=== PATIENT | male | born 1975 ===

== ENCOUNTER 2025-04-10 10:18 | Emergency (ER) | payer MEDICAID ==
[~2025-04-10] VITALS: Ht 185.4 cm; Wt 77.0 kg
[2025-04-10 10:33] VITALS: TEMP 97.8
--- NOTE | 2025-04-10 11:07 | RADIOLOGY REPORT ---
AP portable chest CLINICAL INDICATION: right rib pain FINDINGS: Heart size is normal. No infiltrates or effusions. No bony thoracic abnormalities. IMPRESSION: 1. Normal chest x-ray.
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
[2025-04-10] MEDS ORDERED: HYDR-3972 PO (11:36)
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
[2025-04-10] MEDS: HYDROcodone/acetaminophen 10/325mg tab PO ONE (11:53)
[2025-04-10 11:58] VITALS: BP 121/67; PULSE 60; RESP 14; O2SAT 98
== END 2025-04-10 12:00 | disposition home or self-care (01) ==
LOC: ER 10:20
DX: S22.31XA Fracture of one rib, right side, initial encounter for closed fracture (principal); X58.XXXA Exposure to other specified factors, initial encounter; Y93.01 Activity, walking, marching and hiking; Y93.89 Activity, other specified; Y99.8 Other external cause status
CPT/HCPCS: 71045; 71100; 99284